=== PATIENT | male | born 1960 | race Caucasian/White ===

== ENCOUNTER 2019-06-21 17:13 | Observation (INO) | payer OTHER ==
[~2019-06-21] VITALS: Ht 180.3 cm; Wt 93.0 kg
[~2019-06-21 17:13] MED LIST: AMOXICILLIN 50500 MG PO; OXYCODONE HCL 55 MG PO; PENICILLIN V P500 MG PO; UNICOMPLEX M TA1 TA1 PO
[2019-06-21 17:17] VITALS: BP 122/90
[2019-06-21 18:03] LABS: ABSOLUTE BASOPHILS 0.1 thou/uL (0.0-0.2); ABSOLUTE EOSINOPHILS 0.2 thou/uL (0.0-0.7); ABSOLUTE LYMPHOCYTES 1.7 thou/uL (0.8-5.3); ABSOLUTE MONOCYTES 0.5 thou/uL (0.0-1.2); ABSOLUTE NEUTROPHILS 6.1 thou/uL (1.6-8.1); BASOPHILS 0.7 %; EOSINOPHILS 2.2 %; HEMOGLOBIN 16.1 gm/dL (14.0-18.0); LYMPHOCYTES 19.8 %; MCH 29.8 pg (26.0-34.0); MCV 85.2 fL (80.0-100.0); MONOCYTES 6.1 %; MPV 8.4 fl. (7.2-11.1); NUCLEATED RBCS 0 /100WBC; PLATELET COUNT* 171 thou/uL (150-400); POLYS 71.2 %; RDW-CV 12.9 % (10.5-14.5); WBC 8.6 thou/uL (4.0-11.0)
[2019-06-21 18:14] LABS: CALCIUM 9.2 mg/dL (8.5-10.1); POTASSIUM 4.2 mmol/L (3.5-5.1)
[2019-06-21 18:25] LABS: ALBUMIN 3.9 g/dL (3.4-5.0); TOTAL BILIRUBIN 0.6 mg/dL (<0.1-1.0); TOTAL PROTEIN 7.3 g/dL (6.4-8.2)
--- NOTE | 2019-06-21 19:34 | NUR ---
PULSE DOPPLER LEFT FOOT WITH NO PULSES NOTED TO FOOT.
[2019-06-21 19:41] LABS: APTT 25.6 Seconds (25.0-31.3)
[2019-06-21 21:55] VITALS: BP 115/85
[2019-06-22 04:00] VITALS: BP 109/68
[2019-06-22 08:00] VITALS: BP 111/64
[2019-06-22 12:24] VITALS: BP 106/62
[2019-06-22] MEDS ORDERED: GLUCOTROL5 MG PO ×2 (14:54→15:13)
[2019-06-22] MEDS ORDERED: ELIQUIS5 MG PO ×2 (14:54→15:13)
[2019-06-22] MEDS ORDERED: METFORMIN HCL500 M3 PO ×2 (14:54→15:13)
[2019-06-22 15:50] VITALS: BP 106/62
[2019-06-22 16:44] VITALS: BP 116/76
--- NOTE | 2019-06-22 17:31 | NUR ---
ORDER RECEIVED TO DISCHARGE [facility] HOME TO SELF CARE WITH SPOUSE. MED REC, MEDICATION EDUCATION, STROKE EDUCATION, DVT TREATMENTS, AND NEED FOR FOLLOW UP WITH [facility] AND PRIMARY CARE. IV AND TELEMETRY PACK REMOVED. MEDICATIONS ORDERS SENT TO PHARMACY. [facility] DIS[employer] PRINTED AND MEDICATION COSTS WERE CHECKED WITH HIS PHARMACY. DISCHARGE TIME OF 16:25.
[2019-06-23 03:06] LABS: GLYCOHEMOGLOBIN (HGB A1C) 11.3 % (4.8-5.6)
== END 2019-06-22 16:45 | disposition home or self-care (01) ==
LOC: M.ERS 17:13 → M.TBA-ER 20:14 → M.2W 20:14
PROVIDERS: Internal Medicine; Physician Assistant; ADMIT Internal Medicine
DX: I82.492 Acute embolism and thrombosis of other specified deep vein of left lower extremity (principal); I70.90 Unspecified atherosclerosis; E11.9 Type 2 diabetes mellitus without complications; I26.99 Other pulmonary embolism without acute cor pulmonale; I10 Essential (primary) hypertension; F17.200 Nicotine dependence, unspecified, uncomplicated; Z23 Encounter for immunization